=== PATIENT | male | born 1955 | race Two or more races ===

== ENCOUNTER 2023-08-01 12:15 | Emergency (ER) | payer OTHER ==
[~2023-08-01] VITALS: Ht 177.8 cm; Wt 77.1 kg
[2023-08-01 12:32] VITALS: BP 139/98; TEMP 98.3; O2SAT 99
[2023-08-01] MEDS: IV NS 0.9% 1,000 ML BAG IV ONE (12:57)
== END 2023-08-01 13:02 | disposition left against medical advice (07) ==
LOC: ER 12:20
DX: T40.691A Poisoning by other narcotics, accidental (unintentional), initial encounter (principal); Y92.89 Other specified places as the place of occurrence of the external cause